=== PATIENT | female | born 2005 | race Caucasian/White ===

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

== ENCOUNTER 2023-07-23 19:22 | Emergency (ER) | payer BC ==
[~2023-07-23] VITALS: Ht 160 cm; Wt 59.1 kg
[2023-07-23 19:31] VITALS: BP 123/75; O2SAT 97
[2023-07-23 20:10] LABS: BASO % 0.1 % (0.0-1.0); EOS % 0.1 % (0.0-3.0); HEMATOCRIT 40.9 % (36.0-47.0); HEMOGLOBIN 13.6 g/dl (12.0-15.5); LYMPH # 0.3 10^3/uL (1.5-5.0); LYMPH % 2.8 % (24.0-44.0); MEAN CORPUSCULAR HEMOGLOBIN 29.9 pg (27.0-33.0); MEAN CORPUSCULAR HGB CONC 33.3 g/dl (32.0-36.5); MEAN CORPUSCULAR VOLUME 89.9 fl (80.0-96.0); MONO # 0.4 10^3/uL (0.0-0.8); MONO % 4.5 % (2.0-8.0); NEUTROPHILS # 8.8 10^3/uL (1.5-8.5); NEUTROPHILS % 92.2 % (36.0-66.0); PLATELET COUNT, AUTOMATED 220 10^3/uL (150-450); RED BLOOD COUNT 4.55 10^6/uL (4.00-5.40); WHITE BLOOD COUNT 9.5 10^3/uL (4.0-10.0)
[2023-07-23] MEDS: FAMOTIDINE 20MG/2ML VIAL IVP ONE (20:15)
[2023-07-23] MEDS: ONDANSETRON 4MG 2ML VIAL IV ONE (20:15)
[2023-07-23] MEDS: predniSONE 20 MG TAB PO ONE (20:16)
[2023-07-23] MEDS: NS 1,000 ML IV ONE (20:16)
[2023-07-23] MEDS: MORPHINE 2 MG/ML 1ML VIAL IV ONE (20:16)
[2023-07-23] MEDS ORDERED: ISOVUE-370 76% 100ML VIAL As Ordered ONE (20:32)
[2023-07-23 20:34] LABS: LIPASE 22 U/L (12-53)
[2023-07-23 20:36] LABS: ALBUMIN 3.9 G/DL (3.2-5.2); ALKALINE PHOSPHATASE 61 U/L (46-116); ALT/SGPT 19 U/L (7.0-40); AST/SGOT 20 U/L (<34); BILIRUBIN,DIRECT 0.3 MG/DL (<0.4); BILIRUBIN,TOTAL 0.8 MG/DL (0.3-1.2); BLOOD UREA NITROGEN 14 MG/DL (9-23); CALCIUM LEVEL 8.5 MG/DL (8.5-10.1); CARBON DIOXIDE LEVEL 26 MMOL/L (20-31); CHLORIDE LEVEL 105 MMOL/L (98-107); CPK CREATINE PHOSPHOKINASE 250 U/L (34-145); CREATININE FOR GFR 0.61 MG/DL (0.55-1.30); GLUCOSE, FASTING 98 MG/DL (60-100); POTASSIUM SERUM 3.7 MMOL/L (3.5-5.1); SODIUM LEVEL 138 MMOL/L (136-145)
[2023-07-23 21:12] VITALS: TEMP 99.7
[2023-07-23] MEDS ORDERED: PEPC1TAB5 PO (21:40)
[2023-07-23] MEDS ORDERED: PRED20TA PO (21:40)
[2023-07-23] MEDS ORDERED: ONDA4TAB6 PO (21:40)
[2023-07-23] MEDS ORDERED: KETO10TAB PO (21:40)
[2023-07-23] MEDS: ONDANSETRON 4MG ORAL DISINTEGRATING TAB PO ONE (21:51)
[2023-07-23] MEDS: KETOROLAC TROMETHAMINE 10 MG TAB PO ONE (21:51)
== END 2023-07-23 21:53 | disposition home or self-care (01) ==
LOC: M ED 19:22 → EDBD 19:22 → M ED 21:53
DX: K52.9 Noninfective gastroenteritis and colitis, unspecified (principal); I45.10 Unspecified right bundle-branch block; F32.A Depression, unspecified; F41.9 Anxiety disorder, unspecified; Z91.010 Allergy to peanuts; Z91.048 Other nonmedicinal substance allergy status; Z79.52 Long term (current) use of systemic steroids; Z79.83 Long term (current) use of bisphosphonates; Z79.899 Other long term (current) drug therapy
CPT/HCPCS: 74177; 80047; 80048; 80076; 82550; 83605; 83690; 84702; 85025; 87040; 93005; 93041; 96361; 96374; 96375; 99284; J2405; J7512; Q9967; S0028

== ENCOUNTER 2023-07-29 14:42 | Emergency (ER) | payer OTHER, BC ==
[~2023-07-29] VITALS: Ht 162.6 cm; Wt 59.1 kg
[~2023-07-29 14:42] MED LIST changes: +KETO10TAB PO; +ONDA4TAB6 PO; +PEPC1TAB5 PO; +PRED20TA PO
[2023-07-29] MEDS ORDERED: AMPH1CAP14 PO (15:22)
[2023-07-29] MEDS ORDERED: BUPR300T92 (15:22)
[2023-07-29] MEDS ORDERED: EPIN0.3I11 (15:22)
[2023-07-29 18:55] VITALS: BP 135/98; TEMP 96.8; O2SAT 100
== END 2023-07-29 18:57 | disposition home or self-care (01) ==
LOC: EDBD 14:42 → M ED 14:42
DX: M54.2 Cervicalgia (principal); M25.562 Pain in left knee; V48.0XXA Car driver injured in noncollision transport accident in nontraffic accident, initial encounter; Y92.410 Unspecified street and highway as the place of occurrence of the external cause; Y93.84 Activity, sleeping; Y99.9 Unspecified external cause status; K21.9 Gastro-esophageal reflux disease without esophagitis; J45.909 Unspecified asthma, uncomplicated; F41.9 Anxiety disorder, unspecified; Z79.899 Other long term (current) drug therapy; Z91.010 Allergy to peanuts

== ENCOUNTER → 2023-11-06 | Outpatient (CLI) | payer BC ==
[~2023-11-06] MED LIST changes: +AMPH1CAP14 PO; +BUPR-597; +EPIN0.3I11; +ONDA-282 PO; -ONDA4TAB6 PO
[2023-11-06 14:46] LABS: BASO % 0.5 % (0.0-1.0); EOS # 0.1 10^3/uL (0.0-0.5); EOS % 1.3 % (0.0-3.0); HEMATOCRIT 41.5 % (36.0-47.0); HEMOGLOBIN 13.8 g/dl (12.0-15.5); LYMPH # 1.5 10^3/uL (1.5-5.0); MEAN CORPUSCULAR HEMOGLOBIN 28.9 pg (27.0-33.0); MEAN CORPUSCULAR HGB CONC 33.3 g/dl (32.0-36.5); MEAN CORPUSCULAR VOLUME 86.8 fl (80.0-96.0); MONO # 0.4 10^3/uL (0.0-0.8); MONO % 6.6 % (2.0-8.0); NEUTROPHILS # 3.5 10^3/uL (1.5-8.5); NEUTROPHILS % 64.4 % (36.0-66.0); PLATELET COUNT, AUTOMATED 273 10^3/uL (150-450); RED BLOOD COUNT 4.78 10^6/uL (4.00-5.40); WHITE BLOOD COUNT 5.5 10^3/uL (4.0-10.0)
[2023-11-06 14:51] LABS: ERYTHROCYTE SEDIMENTATION RATE 19 mm/hr (0-20)
[2023-11-06 15:13] LABS: RHEUMATOID FACTOR QUANT < 3.5 IU/ML (<14)
[2023-11-06 15:29] LABS: ALBUMIN 4.4 G/DL (3.2-5.2); ALKALINE PHOSPHATASE 71 U/L (46-116); ALT/SGPT 24 U/L (7.0-40); AST/SGOT 20 U/L (<34); BILIRUBIN,TOTAL 0.7 MG/DL (0.3-1.2); BLOOD UREA NITROGEN 11 MG/DL (9-23); CALCIUM LEVEL 9.9 MG/DL (8.5-10.1); CARBON DIOXIDE LEVEL 30 MMOL/L (20-31); CHLORIDE LEVEL 103 MMOL/L (98-107); CREATININE FOR GFR 0.71 MG/DL (0.55-1.30); FREE T4 1.15 NG/DL (0.83-1.43); GLUCOSE, FASTING 75 MG/DL (60-100); IMMUNOGLOBULIN E 33.2 IU/ML (0-378); SODIUM LEVEL 139 MMOL/L (136-145); THYROGLOBULIN ANTIBODY < 15.0 U/ML (<60.0); THYROID PEROXIDASE ANTIBODY 43 U/ML (<60.0); THYROID STIMULATING HORMONE 0.738 uIU/ML (0.48-4.17); TOTAL PROTEIN 7.7 G/DL (5.7-8.2); TOTAL T3 147.6 NG/DL (86.0-192.0)
[2023-11-08 13:42] LABS: ANA PATTERN Nuclear, Homogeneous (NEGATIVE); ANA PATTERN 2 Nuclear, Speckled; ANA SCREEN, IFA POSITIVE (NEGATIVE)
[2023-11-08 15:57] LABS: F345-IGE MACADAMIA NUT < 0.10 kU/L (<0.10); F422-IgE Ara h 1 < 0.10 kU/L (<0.10); F422-IgE Ara h 2 < 0.10 kU/L (<0.10); F422-IgE Ara h 3 < 0.10 kU/L (<0.10); F422-IgE Ara h 6 < 0.10 kU/L (<0.10); F422-IgE Ara h 9 < 0.10 kU/L (<0.10)
== END ==
LOC: M LAB 13:37
PROVIDERS: ATTEND Allergy & Immunology Allergy
DX: T78.2XXA Anaphylactic shock, unspecified, initial encounter (principal); L50.1 Idiopathic urticaria; T78.05XD Anaphylactic reaction due to tree nuts and seeds, subsequent encounter

== ENCOUNTER → 2023-11-16 | Outpatient (CLI) | payer BC ==
[2023-11-16 16:02] LABS: URIC ACID 5.5 MG/DL (3.1-7.8)
[2023-11-16 16:03] LABS: C REACTIVE PROTEIN QUANTITATIV < 0.40 MG/DL (<1.0)
[2023-11-16 16:06] LABS: COMPLEMENT C3 91.2 MG/DL (82.0-160.0); COMPLEMENT C4 17.5 MG/DL (12-36); RHEUMATOID FACTOR QUANT < 3.5 IU/ML (<14)
[2023-11-20 13:27] LABS: SSA SJOGRENS A <1.0 NEG AI (<1.0 NEG); SSB SJOGRENS B <1.0 NEG AI (<1.0 NEG)
[2023-11-20 23:53] LABS: CYCLIC CITRULLINATED PEPTIDE < 16 UNITS (<20)
[2023-11-21 12:58] LABS: ANA PATTERN Nuclear, Homogeneous (NEGATIVE); ANA PATTERN 2 Nuclear, Speckled; ANA SCREEN, IFA POSITIVE (NEGATIVE)
== END ==
LOC: M LAB 14:26
PROVIDERS: ATTEND Physician Assistant
DX: R76.0 Raised antibody titer (principal)

== ENCOUNTER → 2024-01-18 | Outpatient (CLI) | payer BC ==
[2024-01-18 11:31] LABS: HEMATOCRIT 43.2 % (36.0-47.0); HEMOGLOBIN 14.3 g/dl (12.0-15.5); MEAN CORPUSCULAR HEMOGLOBIN 29.2 pg (27.0-33.0); MEAN CORPUSCULAR HGB CONC 33.1 g/dl (32.0-36.5); MEAN CORPUSCULAR VOLUME 88.2 fl (80.0-96.0); PLATELET COUNT, AUTOMATED 261 10^3/uL (150-450)
[2024-01-18 11:58] LABS: LIPASE 27 U/L (12-53)
[2024-01-18 12:00] LABS: ALBUMIN 3.9 G/DL (3.2-5.2); ALKALINE PHOSPHATASE 77 U/L (46-116); ALT/SGPT 19 U/L (7.0-40); AST/SGOT 18 U/L (<34); BILIRUBIN,DIRECT 0.1 MG/DL (<0.4); BILIRUBIN,TOTAL 0.5 MG/DL (0.3-1.2); BLOOD UREA NITROGEN 12 MG/DL (9-23); CALCIUM LEVEL 9.7 MG/DL (8.5-10.1); CARBON DIOXIDE LEVEL 30 MMOL/L (20-31); CHLORIDE LEVEL 105 MMOL/L (98-107); CREATININE FOR GFR 0.75 MG/DL (0.55-1.30); GLUCOSE, FASTING 85 MG/DL (60-100); POTASSIUM SERUM 3.6 MMOL/L (3.5-5.1); SODIUM LEVEL 140 MMOL/L (136-145); TOTAL PROTEIN 8.3 G/DL (5.7-8.2)
[2024-01-18 12:19] LABS: ATYPICAL LYMPH 6 % (0-5); LYMPHOCYTES 27 % (16-44); MONOCYTES 14 % (0-5); NEUTROPHILS 45 % (28-66)
[2024-01-18 12:20] LABS: PLATELET ESTIMATE NORMAL (NORMAL)
== END ==
LOC: M RAD 10:11
PROVIDERS: ATTEND Physician Assistant
DX: R10.2 Pelvic and perineal pain (principal)

== ENCOUNTER → 2024-02-26 | Outpatient (REF) | payer BC | LOC: M LAB REF 17:16 | PROVIDERS: ATTEND Family Medicine | DX: R05.3 Chronic cough (principal) ==

== ENCOUNTER → 2024-11-13 | Outpatient (CLI) | payer BC ==
[~2024-11-13] MED LIST changes: -BUPR-597; +BUPR-766
== END ==
LOC: M WHC 14:39
PROVIDERS: ATTEND Advanced Practice Midwife
DX: Z30.431 Encounter for routine checking of intrauterine contraceptive device (principal)

== ENCOUNTER → 2024-11-13 | Outpatient (REF) | payer BC ==
[2024-11-13 18:22] LABS: Trichomonas vaginalis (AMP) NOT DETECTED (NEGATIVE)
[2024-11-13 18:46] LABS: GC DNA AMPLIFICATION NEGATIVE (NEGATIVE)
== END ==
LOC: M PLALAB 10:24
PROVIDERS: ATTEND Advanced Practice Midwife
DX: Z12.4 Encounter for screening for malignant neoplasm of cervix (principal)
CPT/HCPCS: 87661; 87810; 87850; G0123